=== PATIENT | male | born 1985 | race Hispanic/Latino ===

== ENCOUNTER 2017-04-07 10:01 | Day surgery (SDC) | payer OTHER ==
[2017-04-07 10:41] LABS: #Basophils 0.1 thou/uL (0.0-0.2); #Eosinphils 0.1 thou/uL (0.0-0.7); #Lymphocytes 2.9 thou/uL (1.20-3.40); #Monocytes 0.6 thou/uL (0.11-0.59); #Neutrophils 5.5 thou/uL (1.40-6.50); %Basophils 1.3 % (0.0-1.0); %Eosinophils 0.8 % (0.0-10.0); %Lymphocytes 31.3 % (21.0-51.0); Hematocrit 50.7 % (42.0-52.0); Mean Platelet Volume 6.6 fL (7.4-10.4); Red Blood Cell (RBC) Count 5.55 mill/uL (4.70-6.10); White Blood Cell (WBC) Count 9.2 thou/uL (4.8-10.8)
[2017-04-07 10:49] LABS: Prothrombin Time 12.5 SEC (12.0-14.7)
[2017-04-07 10:56] LABS: Anion Gap 13 mmol/L (10-20); BUN (Urea Nitrogen) 12 mg/dL (8.9-20.6); Calc. Creatinine Clearance 270 mL/min (70-130); Calcium 9.7 mg/dL (7.8-10.44); Carbon Dioxide 25 mmol/L (22-29); Chloride 104 mmol/L (98-107); Estimated GFR-MDRD Greater than 90
[2017-04-07] MEDS ORDERED: Albumin 5% 0 ML ONE (13:03)
[2017-04-07] MEDS ORDERED: Phenylephrine 10 MG/NS 250 ML 0 ML ONE (13:03)
[2017-04-07] MEDS ORDERED: Sodium Chloride 0.9% 10 ML ONE (13:05)
[2017-04-07] MEDS ORDERED: Bacitracin Zinc Ointment 30 gm TUBE ONE (13:06)
[2017-04-07] MEDS ORDERED: Thrombin 5000 UNITS/5 ML VIAL ONE (13:06)
[2017-04-07] MEDS ORDERED: Fentanyl 100 MCG/2 ML VIAL ONE ×3 (13:22→16:53)
[2017-04-07] MEDS ORDERED: Dexamethasone 20 MG/5 ML VIAL ONE (13:27)
[2017-04-07] MEDS ORDERED: Esmolol 100 MG/10 ML VIAL ONE (13:27)
[2017-04-07] MEDS ORDERED: Ondansetron HCl/PF 4 MG/2 ML Vial ONE (13:27)
[2017-04-07] MEDS ORDERED: Glycopyrrolate 0.2 MG/ML 5 ML SYRINGE ONE (13:27)
[2017-04-07] MEDS ORDERED: Propofol 200 MG/20 ML VIAL ONE (13:27)
[2017-04-07] MEDS ORDERED: Vecuronium 10 MG VIAL ONE ×2 (13:27→14:04)
[2017-04-07] MEDS ORDERED: Lidocaine 2% PF 10 ML AMP (For Epidural Use) ONE (13:27)
[2017-04-07] MEDS ORDERED: PHENYLEPHRINE-NS 100 MCG/ML 10 ML SYRINGE ONE (13:27)
[2017-04-07] MEDS ORDERED: Midazolam HCl 5 mg/5 ml Vial ONE (13:50)
[2017-04-07] MEDS ORDERED: Acetaminophen 325 MG TAB PO PRN (16:14)
[2017-04-07] MEDS ORDERED: Acetaminophen/Codeine 30-300mg Tablet PO PRN (16:14)
[2017-04-07] MEDS ORDERED: Bisacodyl 10 MG SUPP PR PRN (16:14)
[2017-04-07] MEDS ORDERED: Milk Of Magnesia 30 ML UDCUP PO PRN (16:14)
[2017-04-07] MEDS ORDERED: Prochlorperazine 10 MG/2 ML VIAL IM PRN (16:14)
[2017-04-07] MEDS ORDERED: Mag-Al 1200 mg/1200 mg/30 ML UDCUP PO PRN (16:14)
[2017-04-07] MEDS ORDERED: tiZANidine HCl 4 MG TAB PO PRN (16:14)
[2017-04-07] MEDS ORDERED: traMADol HCl 50 MG TAB PO PRN (16:14)
[2017-04-07] MEDS ORDERED: HYDROcodone/Acetaminophen 7.5/325 mg Tablet PO PRN (16:14)
[2017-04-07] MEDS ORDERED: Ondansetron HCl/PF 4 MG/2 ML Vial IVP PRN ×2 (16:14→16:31)
[2017-04-07] MEDS ORDERED: Promethazine HCl 25 MG/ML VIAL IM PRN ×2 (16:14→16:31)
[2017-04-07] MEDS ORDERED: Fleet Enema 133 ML BOT PR PRN (16:14)
[2017-04-07] MEDS ORDERED: Morphine Sulfate 2 MG/ML SYRINGE SLOW IVP PRN (16:31)
[2017-04-07] MEDS ORDERED: HYDROmorphone 2 MG/ML VIAL SLOW IVP PRN (16:31)
[2017-04-07] MEDS ORDERED: Promethazine HCl 25 MG/ML VIAL SLOW IVP PRN (16:31)
[2017-04-07] MEDS ORDERED: Meperidine HCl/PF 25 MG/ML VIAL SLOW IVP PRN (16:31)
[2017-04-07] MEDS: Sodium Chloride 0.9% 1,000 ML IV SCH (18:18)
[2017-04-08] MEDS: Sodium Chloride 0.9% 1,000 ML IV SCH (06:24)
[2017-04-08 08:27] VITALS: BP 123/73; TEMP 97.9
[2017-04-08] MEDS ORDERED: FLU VACC QS2017-18 36 mo. & older 0.5 ML SYRINGE IM ONE (09:00)
--- NOTE | 2017-04-08 09:18 | PRG ---
DATE OF SERVICE: 04/08/2017 Mr. Smith is postoperative #1 from L5-S1 decompression and diskectomy. He is doing very well. He has had resolution of his leg pain with excellent strength in his lower extremity myotomes. I am v tariq pleased with his outcome at this point, and I have educated him regarding interim postoperative issues and also appropriate postoperative care and course. We will follow up in a couple of weeks t o assess wound.
--- NOTE | 2017-04-08 09:39 | OP ---
DATE OF PROCEDURE: 04/07/2017 OR: OR #12. WOUND TYPE: Type 1 wound. SURGEON: Kleevr Noble M.D. ABLE BODIED SEAMAN: Mukul Marino PA-C. PREPROCEDURE DIAGNOSES: Large L5-S1 disk extrusion with low back and right leg pain, comorbidity ob esity. POSTPROCEDURE DIAGNOSES: Large L5-S1 disk extrusion with low back and right leg pain and comorbidit y obesity. PROCEDURE: 1. L5-S1 laminectomy, partial facetectomy, foraminotomy with right-sided L5-S1 diskectomy. 2. Use of operative microscope for microdissection. DESCRIPTION OF PROCEDURE: After informed consent was obtained from the patient, the patient brought to OR 12. Proper patient pause and identification was carried out. He was placed under excellent general endotracheal anesthesia and positioned prone on the operating room table. All appropriate p oints were padded. We identified the L5-S1 dorsal spines and lamina and this area was sterilely genie ansed, prepared, and draped following the making of a linear remington. We then turned our attention to incision, following proper patient pause and identification and with sharp monopolar and blunt disse ction we exposed the L5-S1 segments. Localization film confirmed our area of interest. We then per formed an L5-S1 laminectomy, partial facetectomy, and foraminotomy. I was careful to preserve the m ajority left-sided complex given the absence of leg pain there and the absence of clear radiculopath y. However, given the patient's body habitus, I did expose bone work bilaterally and did more bone work than what we typically see, certainly the hemilaminotomy approach. Once we had adequate decom pression, the microscope was brought into the field and working over the shoulder of the right S1 ne rve root identified large disk material and this was removed. We had excellent decompression of the right S1 nerve root. There was no spinal fluid leak. Copious irrigation occurred. Hemostasis was maximized throughout. The wound was then closed in anatomic layers following the sprinkling of van comycin powder. The patient then emerged from anesthesia.
--- NOTE | 2017-04-09 06:30 | EKG ---
Test Reason : PREOP Blood Pressure : / mmHG Vent. Rate : 080 BPM Atrial Rate : 080 BPM P-R Int : 168 ms QRS Dur : 100 ms QT Int : 380 ms P-R-T Axes : 040 089 030 degrees QTc Int : 438 ms Normal sinus rhythm Normal ECG No previous ECGs available Confirmed by SOURAV HANCOCK ([id number]) on 04/09/2017 6:29:56 AM Referred By: MICHAEL Confirmed By:SOURAV HANCOCK
== END 2017-04-08 09:56 | disposition home or self-care (01) ==
LOC: SDC 10:01 → SJJU 16:14 → SDC 04-08 09:56
PROVIDERS: ATTEND Surgery
PROC: 0SB40ZZ Excision of Lumbosacral Disc, Open Approach (ICD-10-PCS; principal; 2017-04-08)
DX: M51.26 Other intervertebral disc displacement, lumbar region (principal); M54.16 Radiculopathy, lumbar region; F17.210 Nicotine dependence, cigarettes, uncomplicated
CPT/HCPCS: 36415; 76001; 80048; 85025; 85610; 85730; 93005; 93010; 96374; A4216; J1100; J1170; J2001; J2250; J2405; J2704; J3010; J3370; J3490; P9045